=== PATIENT | male | born 1990 | race Hispanic/Latino ===

== ENCOUNTER 2017-05-23 09:38 | Emergency (ER) | payer OTHER ==
--- NOTE | 2017-05-23 12:01 | CT ---
CT BRAIN WITHOUT CONTRAST: DATE: 05/23/17. FINDINGS: A noncontrast CT was performed. The ventricles are normal in size with no shift. No intracranial bl eeding, mass, or extraaxial hematoma was seen. There is no sign of stroke. No skull fracture was se en. The sphenoid sinus and mastoid air cells are clear. IMPRESSION: No acute intracranial finding. POS: HOME
== END 2017-05-23 10:30 | disposition home or self-care (01) ==
LOC: BURERS 09:38
DX: S06.0X0A Concussion without loss of consciousness, initial encounter (principal); H55.00 Unspecified nystagmus; W22.8XXA Striking against or struck by other objects, initial encounter
CPT/HCPCS: 70450